=== PATIENT | female | born 1990 | race Caucasian/White ===

== ENCOUNTER 2018-01-27 20:32 | Emergency (ER) | payer OTHER ==
[~2018-01-27] VITALS: Ht 154.9 cm; Wt 135.2 kg
[2018-01-27 20:39] VITALS: Ht 154.9 cm; Wt 135.2 kg
[2018-01-27 21:31] LABS: AMPHETAMINE QUAL UR NONE DETECTED (See below)
[2018-01-27 21:50] LABS: CALCIUM 8.4 mg/dL (8.5-10.1); CARBON DIOXIDE 25.8 mmol/L (21-32); CHLORIDE SERUM 105 mmol/L (98-107); CREATININE SERUM 0.9 mg/dL (0.6-1.0); GFR1 > 60 mL/min; GLUCOSE SERUM 106 mg/dL (74-106); SODIUM SERUM 141 mmol/L (136-145)
[2018-01-27 23:38] VITALS: BP 136/101
== END 2018-01-27 23:38 | disposition home or self-care (01) ==
LOC: ED 20:32
PROVIDERS: Emergency Medicine
DX: R55 Syncope and collapse (principal); F14.90 Cocaine use, unspecified, uncomplicated; J45.909 Unspecified asthma, uncomplicated; Z90.09 Acquired absence of other part of head and neck
CPT/HCPCS: J7030

== ENCOUNTER 2018-08-28 15:11 | Emergency (ER) | payer OTHER ==
[~2018-08-28] VITALS: Ht 154.9 cm; Wt 145.6 kg
[2018-08-28 15:20] VITALS: Ht 154.9 cm; Wt 145.6 kg
[2018-08-28 16:57] LABS: BASOPHIL % 1.4 % (0-2)
[2018-08-28 16:58] LABS: PLATELET COUNT 407 x10^3mcL (130-400); RED CELL DISTRIBUTION WIDTH 14.6 % (11.5-14.5)
[2018-08-28 17:03] LABS: CALCIUM 8.8 mg/dL (8.5-10.1); CARBON DIOXIDE 28.2 mmol/L (21-32); CHLORIDE SERUM 102 mmol/L (98-107); CREATININE SERUM 0.6 mg/dL (0.6-1.0); GFR1 > 60 mL/min; GLUCOSE SERUM 111 mg/dL (74-106); POTASSIUM SERUM 3.7 mmol/L (3.5-5.1); SODIUM SERUM 138 mmol/L (136-145)
[2018-08-28 17:07] LABS: ALBUMIN 3.4 g/dL (3.4-5.0); ALKALINE PHOSPHATASE 112 U/L (46-116); ALT/SGPT 66 U/L (14-59); AST/SGOT 34 U/L (15-37); TOTAL PROTEIN, SERUM 7.6 g/dL (6.4-8.2)
[2018-08-28 17:42] VITALS: BP 122/79
== END 2018-08-28 17:42 | disposition home or self-care (01) ==
LOC: ED 15:11
PROVIDERS: Emergency Medicine
DX: R07.89 Other chest pain (principal); F14.10 Cocaine abuse, uncomplicated; F41.9 Anxiety disorder, unspecified; F17.210 Nicotine dependence, cigarettes, uncomplicated; J45.909 Unspecified asthma, uncomplicated
CPT/HCPCS: 36415

== ENCOUNTER 2018-11-11 21:57 | Emergency (ER) | payer OTHER ==
[~2018-11-11] VITALS: Ht 154.9 cm; Wt 135.2 kg
[2018-11-11 22:20] VITALS: Ht 154.9 cm; Wt 135.2 kg
[2018-11-12 00:01] LABS: BASOPHIL % 0.2 % (0-2); PLATELET COUNT 366 x10^3mcL (130-400); RED CELL DISTRIBUTION WIDTH 14.5 % (11.5-14.5)
[2018-11-12 00:30] LABS: CALCIUM 8.8 mg/dL (8.5-10.1); CARBON DIOXIDE 26.5 mmol/L (21-32); CHLORIDE SERUM 105 mmol/L (98-107); CREATININE SERUM 0.7 mg/dL (0.6-1.0); GFR1 > 60 mL/min; GLUCOSE SERUM 104 mg/dL (74-106); POTASSIUM SERUM 3.8 mmol/L (3.5-5.1); SODIUM SERUM 142 mmol/L (136-145)
[2018-11-12 00:34] LABS: ALKALINE PHOSPHATASE 110 U/L (46-116); ALT/SGPT 57 U/L (14-59); AST/SGOT 22 U/L (15-37); BILIRUBIN TOTAL 0.1 mg/dL (0.20-1.00); TOTAL PROTEIN, SERUM 7.1 g/dL (6.4-8.2)
[2018-11-12 00:38] LABS: ALBUMIN 3.2 g/dL (3.4-5.0)
[2018-11-12 04:40] VITALS: BP 123/71
== END 2018-11-12 04:40 | disposition home or self-care (01) ==
LOC: ED 21:57
PROVIDERS: Emergency Medicine
DX: R07.89 Other chest pain (principal); R55 Syncope and collapse; R00.2 Palpitations; J45.909 Unspecified asthma, uncomplicated; F41.9 Anxiety disorder, unspecified; F32.9 Major depressive disorder, single episode, unspecified
CPT/HCPCS: 85378; J2060; J7030; Q0092

== ENCOUNTER 2018-11-23 | Emergency (ER) | payer OTHER ==
[~2018-11-23] VITALS: Ht 154.9 cm; Wt 146.5 kg
[2018-11-23 00:05] VITALS: Ht 154.9 cm; Wt 146.5 kg
[2018-11-23 02:22] VITALS: BP 118/76
== END 2018-11-23 02:22 | disposition home or self-care (01) ==
LOC: ED
DX: R06.00 Dyspnea, unspecified (principal); J45.909 Unspecified asthma, uncomplicated; F41.9 Anxiety disorder, unspecified; F32.9 Major depressive disorder, single episode, unspecified
CPT/HCPCS: 36600; Q0092